=== PATIENT | female | born 1945 | race Caucasian/White ===

== ENCOUNTER → 2021-06-03 | Outpatient (CLI) | payer MEDICARE ==
[~2021-06-03] MED LIST: CATHETER FLUSH 10 ML SYR IVP PRN; LISI5TAB20 PO; METO-333 PO; REGADENOSON 0.4 MG/5 ML SYR (LEXISCAN) IV ONE; TICA90TA PO
[2021-06-03 13:20] VITALS: BP 130/71
--- NOTE | 2021-06-03 17:28 | STRESS TEST ---
DATE OF SERVICE: 06/03/2021 RESTING AND POST REGADENOSON TECHNETIUM-99M TETROFOSMIN SPECT CT IMAGING ORDERING PHYSICIAN: Dr. Figueroa. PRIMARY PHYSICIAN: Dr. Thibodeaux. CLINICAL DIAGNOSIS: Coronary artery disease. Baseline images were carried out after injection of 10.96 mCi of technetium-99m Tetrofosmin. This was followed by 0.4 mg Regadenoson and 31.8 mCi of technetium-99m Tetrofosmin for stress imaging. The electrocardiogram showed sinus rhythm at baseline. It did not change significantly with the Regadenoson infusion. Rare isolated premature ventricular contraction was seen. The patient tolerated the procedure well. Review of images at rest and following stress does not indicate any distinct perfusion defects consistent with significant myocardial ischemia or infarction. Gated images show normal global left ventricular systolic function with a normal regional wall motion. Left ventricular ejection fraction is calculated to be 77%. CONCLUSIONS: 1. This study does not indicate significant myocardial ischemia or infarction. 2. Normal to hyperdynamic left ventricular systolic function with an ejection fraction of 77%. Job ID: [id number] DocumentID: [id number] Dictated Date: 06/03/2021 15:53:04 Database Consultant Date: 06/03/2021 17:28:13 Dictated By: OMA FIGUEROA MD, MA, FACP, FACC,
== END ==
LOC: CARD 11:05
PROVIDERS: ATTEND Internal Medicine Cardiovascular Disease
DX: I25.10 Atherosclerotic heart disease of native coronary artery without angina pectoris (principal)
CPT/HCPCS: 78452; 93017; A9502

== ENCOUNTER 2022-02-15 16:39 | Emergency (ER) | payer MEDICARE ==
[~2022-02-15 16:39] MED LIST changes: -CATHETER FLUSH 10 ML SYR IVP PRN; -REGADENOSON 0.4 MG/5 ML SYR (LEXISCAN) IV ONE
[2022-02-15] MEDS ORDERED: dilTIAZem DRIP PRE-MIX 125 ML IV STA (16:59)
[2022-02-15] MEDS ORDERED: ASPIRIN 81 MG CHEW (CHILDREN'S ASA) PO ONE (17:00)
[2022-02-15 17:04] LABS: BASOPHILS % (AUTO) 0 % (0-10); EOSINOPHILS # (AUTO) 0.1 10^3/uL (0.0-0.3); EOSINOPHILS % (AUTO) 1 % (0-10); HEMATOCRIT 39 % (35-52); HEMOGLOBIN 12.6 g/dL (11.5-16.0); LYMPHOCYTES # (AUTO) 4.4 10^3/uL (1.0-4.0); LYMPHOCYTES % (AUTO) 41 % (12-44); MEAN CORPUSCULAR HEMOGLOBIN 32 pg (25-34); MEAN CORPUSCULAR HGB CONC 32 g/dL (32-36); MEAN CORPUSCULAR VOLUME 98 fL (80-99); MEAN PLATELET VOLUME 10.4 fL (9.0-12.2); MONOCYTES # (AUTO) 0.9 10^3/uL (0.0-1.0); MONOCYTES % (AUTO) 8 % (0-12); NEUTROPHILS # (AUTO) 5.4 10^3/uL (1.8-7.8); NEUTROPHILS % (AUTO) 50 % (42-75); PLATELET COUNT 204 10^3/uL (130-400); WHITE BLOOD COUNT 10.8 10^3/uL (4.3-11.0)
--- NOTE | 2022-02-15 17:12 | ED Chest Pain ---
General Chief Complaint: Chest Pain Stated Complaint: TACHY; CHEST PAIN Source: patient History of Present Illness Date Seen by Provider: Feb 15, 2022 Time Seen by Provider: 16:42 Initial Comments 76-year-old female presenting with complaints of her heart racing and feeling tightness in her chest. She states that she was having diarrhea all night and then about 1 to 2 hours prior to arrival she started to feel like her heart was racing. At home she states that her heart rate was up to around 167. She was feeling dizzy and lightheaded and had chest tightness. She states that she had a heart attack 3 years ago and had a stent placed. She has been taking her medicines as prescribed Timing/Duration: 1-3 hours Severity/Quality: moderate Location: substernal Radiation: no radiation Activities at Onset: rest Prior CP/Workup: heart attack (stent placed Feb 2019) Modifying Factors: worse with exercise (activity makes her heart feel like it is racing mo re) ASA po CONSTRUCTION JOB COST ESTIMATOR: No NTG SL CONSTRUCTION JOB COST ESTIMATOR: No Associated Symptoms: No abdominal pain, No back pain, No diaphoresis, No dizziness, No edema, No fatigue, No fever/chills, No headache, No heartburn, No nausea/vomiting, No rash; shortness of breath; No swelling/lump in chest, No syncope, No weakness Allergies and Home Medications Allergies Coded Allergies: Penicillins (Verified Allergy, Mild, Hives, 03/13/19) Patient Home Medication List Home Medication List Reviewed: Yes Lisinopril (Lisinopril) 5 Mg Tablet, 5 MG PO DAILY@0900 Prescribed by: ALYSSIA AYALA on 03/15/19 1031 Metoprolol Tartrate (Metoprolol Tartrate) 25 Mg Tablet, 12.5 MG PO BID Prescribed by: ALYSSIA AYALA on 03/15/19 1031 Ticagrelor (Brilinta) 90 Mg Tablet, 90 MG PO BID Prescribed by: ALYSSIA AYALA on 03/15/19 1031 Review of Systems Review of Systems Constitutional: No chills, No fever EENTM: No Symptoms Reported Respiratory: Shortness of Air (with her heart racing) Cardiovascular: Chest Pain (chest tightness), Irregular Heart Rate, Palpitations Gastrointestinal: Denies Nausea, Denies Vomiting Genitourinary: No Symptoms Reported Musculoskeletal: no symptoms reported Skin: No rash Psychiatric/Neurological: Denies Headache Past Hweaxgn-Jfqjnr-Tphvmd Hx Patient Social History Tobacco Use?: No Use of E-Cig and/or Vaping dev: No Substance use?: No Alcohol Use?: No Immunizations Up To Date PED Vaccines UTD: No Seasonal Allergies Seasonal Allergies: No Past Medical History Surgery/Hospitalization HX: CAD with [place] in Feb 2019 with stent placement Surgeries: Yes Appendectomy, Coronary Stent, Gallbladder Respiratory: No Cardiac: No Neurological: No Female Reproductive Disorders: Denies Sexually Transmitted Disease: No HIV/AIDS: No Genitourinary: No Gastrointestinal: No Musculoskeletal: Yes Rheumatoid Arthritis Endocrine: No HEENT: No Cancer: No Did You Recieve Any Treatments: No Psychosocial: No Integumentary: No Blood Disorders: No Adverse Reaction/Blood Tranf: No Family Medical History No Pertinent Family Hx Physical Exam Vital Signs Vital Signs - First Documented 02/15/22 16:40 Temp 36.7 Pulse 167 Resp 97 B/P (MAP) 172/62 (98) Pulse Ox 97 O2 Delivery Room Air Capillary Refill : Height, Weight, BMI Height: '" Weight: lbs. oz. kg; 36.20 BMI Method: General Appearance: Anxious, Obese HEENT: PERRL/EOMI, Pharynx Normal Neck: Full Range of Motion, Normal Inspection, Non Tender, Supple Respiratory: Chest Non Tender, Lungs Clear, Normal Breath Sounds, No Accessory Muscle Use, No Respiratory Distress Cardiovascular: Normal Peripheral Pulses, Irregularly Irregular, Tachycardia Gastrointestinal: Normal Bowel Sounds, No Pulsatile Mass, Non Tender, Soft Rectal: Deferred Extremity: Normal Capillary Refill, Normal Inspection, No Pedal Edema Neurologic/Psychiatric: Alert, Oriented x3, python java developer II-XII Norm as Tested Skin: Normal Color, Warm/Dry Critical Care Note Critical Care Total Time (minutes) 60 minutes Progress 60 minutes of critical care time was spent with the patient. Time excludes separately billable procedures. Time was spent obtaining history from the patient and spouse, ordering tests and interpreting results, ordering interventions and monitoring response, discussion with family and consultants, documentation in the chart. Patient was at risk of cardiac compromise and required IV medications to help with her heart rate and atrial fibrillation as well as monitoring and management of her blood pressure and heart rate. Progress/Results/Core Measures Results/Orders Lab Results Laboratory Tests Test 02/15/22 16:52 02/15/22 16:59 Range/Units White Blood Count 10.8 4.3-11.0 10^3/uL Red Blood Count 4.00 3.80-5.11 10^6/uL Hemoglobin 12.6 11.5-16.0 g/dL Hematocrit 39 35-52 % Mean Corpuscular Volume 98 80-99 fL Mean Corpuscular Hemoglobin 32 25-34 pg Mean Corpuscular Hemoglobin Concent 32 32-36 g/dL Red Cell Distribution Width 13.0 10.0-14.5 % Platelet Count 204 130-400 10^3/uL Mean Platelet Volume 10.4 9.0-12.2 fL Immature Granulocyte % (Auto) 0 % Neutrophils (%) (Auto) 50 42-75 % Lymphocytes (%) (Auto) 41 12-44 % Monocytes (%) (Auto) 8 0-12 % Eosinophils (%) (Auto) 1 0-10 % Basophils (%) (Auto) 0 0-10 % Neutrophils # (Auto) 5.4 1.8-7.8 10^3/uL Lymphocytes # (Auto) 4.4 H 1.0-4.0 10^3/uL Monocytes # (Auto) 0.9 0.0-1.0 10^3/uL Eosinophils # (Auto) 0.1 0.0-0.3 10^3/uL Basophils # (Auto) 0.0 0.0-0.1 10^3/uL Immature Granulocyte # (Auto) 0.0 0.0-0.1 10^3/uL Sodium Level 140 135-145 MMOL/L Potassium Level 3.7 3.6-5.0 MMOL/L Chloride Level 104 98-107 MMOL/L Carbon Dioxide Level 23 21-32 MMOL/L Anion Gap 13 5-14 MMOL/L Blood Urea Nitrogen 18 7-18 MG/DL Creatinine 0.88 0.60-1.30 MG/DL Estimat Glomerular Filtration Rate 68 BUN/Creatinine Ratio 20 Glucose Level 197 H 70-105 MG/DL Calcium Level 9.3 8.5-10.1 MG/DL Corrected Calcium 9.1 8.5-10.1 MG/DL Magnesium Level 2.1 1.6-2.4 MG/DL Total Bilirubin 0.6 0.1-1.0 MG/DL Aspartate Amino Transf (AST/SGOT) 29 5-34 U/L Alanine Aminotransferase (ALT/SGPT) 21 0-55 U/L Alkaline Phosphatase 56 40-136 U/L Troponin I < 0.30 <0.30 NG/ML Pro-B-Type Natriuretic Peptide 163.3 <450.0 PG/ML Total Protein 7.2 6.4-8.2 GM/DL Albumin 4.2 3.2-4.5 GM/DL Lipase 28 8-78 U/L Prothrombin Time 12.8 12.2-14.7 SEC INR Comment 0.9 0.8-1.4 Activated Partial Thromboplast Time 22 L 24-35 SEC My Orders Orders - PRAVEENA KAM MD Diltiazem Injection (Cardizem Injection) (02/15/22 16:59) Diltiazem Drip Pre-Mix (Cardizem Drip Pr (02/15/22 16:59) Cbc With Automated Diff (02/15/22 16:59) Magnesium (02/15/22 16:59) Chest 1 View Ap/Pa Only (02/15/22 16:59) Ekg Tracing (02/15/22 16:59) Comprehensive Metabolic Panel (02/15/22 16:59) Protime With Inr (02/15/22 16:59) Partial Thromboplastin Time (02/15/22 16:59) O2 (02/15/22 16:59) Monitor-Rhythm Ecg Trace Only (02/15/22 16:59) Aspirin Chewable Tablet (Baby Aspirin Ch (02/15/22 17:00) Ed Iv/Invasive Line Start (02/15/22 16:59) Lipase (02/15/22 16:59) Troponin I Fs (02/15/22 16:59) Probnp Fs (02/15/22 16:59) Ns Iv 1000 Ml (Sodium Chloride 0.9%) (02/15/22 17:56) Ns Iv 1000 Ml (Sodium Chloride 0.9%) (02/15/22 18:51) Medications Given in ED Current Medications Medications Dose Ordered Sig/Jessica Route Start Time Stop Time Status Last Admin Dose Admin Aspirin 324 mg ONCE ONCE PO 02/15/22 17:00 02/15/22 17:01 DC 02/15/22 17:06 324 MG Vital Signs/I&O 02/15/22 02/15/22 02/15/22 16:40 17:06 17:16 Temp 36.7 Pulse 167 161 159 Resp 97 B/P (MAP) 172/62 (98) 140/125 124/91 Pulse Ox 97 O2 Delivery Room Air Blood Pressure Mean: 130 Progress Progress Note #1: Progress Note Check labs and electrocardiogram to check what her heart rate is doing. Obtain basic labs to look at her heart as well as her electrolytes. With her electrocardiogram and groundwater monitoring technician showing atrial fibrillation with RVR we will place her on a diltiazem bolus of 10 mg and a drip if needed to help try and control her rate better. Administer aspirin 324 mg p.o. for her chest tightness. Chest x-ray to look for signs of fluid or cardiomegaly or heart failure or pneumonia. Differential diagnosis includes new onset atrial fibrillation, myocardial infarction, electrolyte imbalance, dehydration, thyroid disorder Progress Note #2: Progress Note Her chest tightness improved as the diltiazem bolus and drip were started. She continues to be in atrial fibrillation with RVR with heart rate varying from 120s to 160. She still has good oxygen saturation and her blood pressure has fluctuated between 110 systolic up to 160 systolic. Her labs did not show any acute significant normality on CBC or chemistry. Her troponin came back and was not elevated at less than 0.3. We will check to see if there is any ICU beds or monitored beds that the patient could go to [facility] in [place]. IV fluids of normal saline were added for hydration as the patient stated she did have diarrhea all night. Progress Note #3: Progress Note There were no local monitored or ICU beds available for the patient to go on a diltiazem drip. When discussed with the patient and spouse they wanted to try going to [facility] or [facility] in [place] before considering [facility]. 1808 I called [facility] direct call about possible transfer and had to leave a voice message. 1823 I called back to check again with [facility] and this time I did reach the transfer nurse. She stated that they were on diversion and did not have any beds currently because they were at capacity. [facility] for the patient on the diltiazem drip. They took her information and will call back after they have reached the doctor on-call. 1929 [facility] transfer line called back and I spoke with Dr. Osorio. I reviewed the patient's history and physical exam findings with her being in Atrial Fibrillation with RVR as a new diagnosis. She did not have any elevation in her troponin or proBNP to indicate cardiac acute syndrome. She had mild improvement with the diltiazem bolus and was placed on a drip. She has tolerated this well and blood pressures have been 1 10-1 40 systolic. As I did not have closer bed in a facility that had capability for diltiazem drip and cardiology they requested to come to [place]. He accepted the patient to cardiac stepdown. Will call back with bed assignment. Wanda Celaya from [facility] transfer line called and patient will be going to room 3103 and gave number and name for nursing report. 1999 patient continues to be stable and her heart rate did improve with a drop down into the 80s and showed more of a sinus rhythm. She did have an episode of her heart rate going back up into the 110s and irregular. We will continue the diltiazem drip for now but she could be titrated down. She would still benefit from cardiology evaluation and looking into why she had atrial fibrillation in the first place. We will continue with transfer of the patient. Initial ECG Impression Date: Feb 15, 2022 Initial ECG Impression Time: 16:45 Initial ECG Rate: 162 Initial ECG Rhythm: A Fib/Flutter Initial ECG Comparisson: No Previous ECG Available Comment On my personal interpretation and review of her electrocardiogram she has atrial flutter with tachycardia with rapid ventricular response and a rate of 162 bpm. She appears to have an intraventricular conduction delay. QT interval 269 ms with a QTc interval 359 ms. She has no prior tracing available for comparison. There is no ST elevation. Diagnostic Imaging Diagonstic Imaging: Xray Plain Films/CT/US/NM/MRI: chest Comments [facility]. [place], [place] NAME: VALERIANO [email or web address] [email or web address] REC#: [id number] PT STATUS: REG ER : 1945 PHYSICIAN: PRAVEENA KAM MD ADMIT DATE: 02/15/22/ER FS Signed Date of Exam:02/15/22 CHEST 1 VIEW AP/PA ONLY INDICATION: Tachycardia, chest tightness. COMPARISON: None available. TECHNIQUE: Single radiograph of the chest dated February 15, 2022. FINDINGS: The cardiac silhouette is mildly enlarged. No significant pulmonary vascular congestion. Round calcific densities are noted overlying the lungs, bilaterally, felt to relate to calcified granuloma. Mild left basilar interstitial opacities are also noted. The lungs otherwise appear clear. No significant pleural effusion. No pneumothorax. No acute osseous abnormality. IMPRESSION: Mild cardiomegaly without pulmonary vascular congestion. Minimal left basilar atelectasis and/or pneumonitis. Calcified granuloma noted, bilaterally. Dictated by: Dictated on workstation # [id number] Dict: 02/15/22 1709 Trans: 02/15/221835 PJE [id number] Interpreted by: PATRICK MARSHALL MD Electronically signed by: PATRICK MARSHALL MD 02/15/221835 Reviewed: Reviewed by Me Departure Impression Primary Impression: Atrial fibrillation with rapid ventricular response Additional Impression: Chest tightness Disposition: XFER [facility] Condition: Critical Transfer Transfer Reason: Diversion (closer facilities on diversion) Time Spoke to Accepting Phy: 19:30 Transfer Progress Notes D/w Dr. Quintana for [facility] [place]. Reviewed the new onset of atrial fibrillation with RVR after having diarrhea overnight. Although she is on a diltiazem drip after an initial bolus of 10 mg she continues to be in A. fib with RVR with heart rate varying from 1 20-1 60. Her blood pressures been doing well with the lowest at 110 systolic but usually in the 120s to 140 range. She had her chest pain resolved with the diltiazem bolus and drip. She is getting IV fluids for hydration since she had diarrhea overnight. Her cardiac enzymes were negative for acute myocardial infarction there heart failure. Other electrolytes appear stable. No acute findings on the chest x-ray. He accepted patient cardiac stepdown bed and the transfer center will call back when a bed is available. Transfer Facility: [facility] Method of Transfer: EMS Departure-Patient Inst. Referrals: JUNITO WRIGHT DO (PCP) Primary Care Physician PRAVEENA KAM MD Feb 15, 2022 17:12
[2022-02-15 17:24] LABS: INR 0.9 (0.8-1.4); PROTHROMBIN TIME PATIENT 12.8 SEC (12.2-14.7)
[2022-02-15 17:27] LABS: POTASSIUM 3.7 MMOL/L (3.6-5.0)
[2022-02-15 17:28] LABS: ALBUMIN 4.2 GM/DL (3.2-4.5); BILIRUBIN,TOTAL 0.6 MG/DL (0.1-1.0); CALCIUM 9.3 MG/DL (8.5-10.1); CREATININE SERUM 0.88 MG/DL (0.60-1.30); MAGNESIUM 2.1 MG/DL (1.6-2.4); TOTAL PROTEIN 7.2 GM/DL (6.4-8.2)
[2022-02-15] MEDS ORDERED: NS IV 1000 ML 1,000 ML IV STA ×2 (17:56→18:51)
[2022-02-15 20:20] VITALS: BP 122/52
== END 2022-02-15 20:20 | disposition short-term general hospital (02) ==
LOC: EDUNIT# 16:39 → ER FS 16:41
DX: R07.2 Precordial pain (principal); I48.20 Chronic atrial fibrillation, unspecified
CPT/HCPCS: 36415; 71045; 80053; 83690; 83735; 83880; 84484; 85025; 85610; 85730; 93005; 93041; 99291